=== PATIENT | male | born 1965 | race Caucasian/White ===

== ENCOUNTER 2018-08-12 16:21 | Emergency (ER) | payer SELFPAY ==
[~2018-08-12] VITALS: Ht 182.9 cm; Wt 56.7 kg
[2018-08-12] MEDS ORDERED: FLUCONAZOLE (100 MG) 100 MG TABLET ONE (16:52)
[2018-08-12] MEDS ORDERED: FLUCONAZOLE (100 MG) 100 MG TABLET PO ONE (17:00)
[2018-08-12 18:56] VITALS: BP 118/70
== END 2018-08-12 19:01 | disposition home or self-care (01) ==
LOC: ER 16:23
DX: B37.0 Candidal stomatitis (principal)
CPT/HCPCS: A4606; Z7610